=== PATIENT | female | born 1985 | race African-American/Black ===

== ENCOUNTER 2019-01-24 16:03 | Emergency (ER) | payer BC, MEDICAID ==
[~2019-01-24] VITALS: Ht 167.6 cm; Wt 80.0 kg
[2019-01-24] MEDS ORDERED: KETOROLAC 15MG/ML VIAL IM ONE (19:15)
[2019-01-24] MEDS ORDERED: METHOCARBAMOL 500MG TABLET PO ONE (19:15)
[2019-01-24 19:43] VITALS: BP 141/93
== END 2019-01-24 19:48 | disposition home or self-care (01) ==
LOC: ER 16:03
DX: S16.1XXA Strain of muscle, fascia and tendon at neck level, initial encounter (principal); M54.5 Low back pain; M25.512 Pain in left shoulder; V49.49XA Driver injured in collision with other motor vehicles in traffic accident, initial encounter; Y93.89 Activity, other specified; Y92.410 Unspecified street and highway as the place of occurrence of the external cause
CPT/HCPCS: 96372; 99283; J1885